=== PATIENT | male | born 1960 | race Caucasian/White ===

== ENCOUNTER 2024-08-04 19:51 | Emergency (ER) | payer OTHER, SELFPAY ==
[2024-08-04 19:59] VITALS: BP 127/101
[2024-08-04 20:28] LABS: % Basophils 0.7 % (0-2); % Eosinophils 1.6 % (0-6); % Immature Granulocytes 0.6 % (0-0.5); % Lymphocytes 25.5 % (20.5-51.1); % Monocytes 11.9 % (1.7-9.3); % Neutrophils 59.7 % (42.2-75.2); Absolute Basophils 0.1 10^3/uL (0-0.2); Absolute Eosinophils 0.2 10^3/uL (0-0.7); Absolute Immature Granulocytes 0.1 10^3/uL (0-0.05); Absolute Lymphocytes 2.4 10^3/uL (1.2-3.4); Absolute Monocytes 1.1 10^3/uL (0.1-0.6); Absolute Neutrophils 5.6 10^3/uL (1.4-6.5); Hematocrit 49.6 % (39.0-52.0); Hemoglobin 16.8 g/dL (13.0-18.0); Mean Corp Hgb Conc. 33.9 g/dL (33.0-37.0); Mean Corpuscular Hgb 29.8 pg (27.0-31.0); Mean Corpuscular Volume 87.9 fL (80.0-94.0); Nucleated Red Blood Cells % 0 % (-); Platelet Count 244 10^3/uL (130-400); Red Blood Cell Count 5.64 10^6/uL (4.70-6.10); Red Cell Dist. Width 17.2 % (11.5-14.5); White Blood Cell Count 9.5 10^3/uL (4.8-10.8)
[2024-08-04 20:36] VITALS: BMI 32.4
[2024-08-04 20:49] LABS: ALT (SGPT) 70 U/L (0-50); AST (SGOT) 87 U/L (17-59); Albumin 4.4 g/dl (3.5-5.0); Alkaline Phosphatase 43 U/L (38-126); Blood Urea Nitrogen 20 mg/dl (9-20); Calcium 10.4 mg/dl (8.4-10.2); Carbon Dioxide 27 mmol/L (22-30); Chloride 100 mmol/L (98-107); Estimated Creatinine Clearance 80 ml/min; Glucose 100 mg/dl (70-99); Potassium 4.5 mmol/L (3.5-5.1); Sodium 136 mmol/L (135-145); Total Bilirubin 0.4 mg/dl (0.2-1.3); Total Protein 7.3 g/dl (6.3-8.2); eGFR > 60.00
[2024-08-04 20:51] LABS: Troponin I 0.016 ng/ml
[2024-08-04 21:00] VITALS: BP 107/80
[2024-08-04 21:19] LABS: TSH Reflex To Free T4 3.36 uIU/ml (0.47-4.68)
[2024-08-04 22:00] VITALS: BP 117/66
[2024-08-04] MEDS: LOPRESSOR 5 MG IV (22:41)
--- NOTE | 2024-08-04 22:49 | ED.GENMED ---
History of Present Illness
General
Chief Complaint: Heart Rate Problem
Source: patient, records, physician and previous hospital records
Exam Limitations: none
Time Seen by Provider: 08/04/24 21:07
Nursing documentation reviewed up to this point in time: agreed with
History of Present Illness
History of Present Illness:
64-year-old male status post ablation for AF followed by Dr. Reddy in [facility] presents with a month of palpitations after being on a cruise, saw them, had a Holter monitor reportedly did not show any AF, recommended beta-chetan, has not been
started yet, nondrinker non-smoker, he feels irregular like when he had A-fib, no syncope, not currently on anticoagulation, has required cardioversion in the past prior to his ablation
Past History
Past History
ED Past Medical History: Arrthythmia (Paroxysmal atrial fibrillation.), Hypercholesterolemia and Other (Pulmonary embolus, paroxysmal atrial fib status post ablation, hyperlipidemia, spinal stenosis, recent COVID); Negative CAD, HTN or NIDDM
ED Past Surgical History: Orthopedic (Bilateral total knee replacements) and Other (Hernia repair)
Social History
Tobacco: Non-smoker
Alcohol: None
Drug: None
Personal:
Living: with family
Employment: Employed
Family History
Family History: Other (Pulmonary embolism)
Review of Systems
Review of Systems
All Other Systems: Not applicable
Constitutional: Reports fatigue; Denies fever
EENT: Reports no symptoms
Respiratory: Reports trouble breathing
Cardiac: Reports palpitations; Denies chest pain
ABD/GI: Reports no symptoms
Neurological: Reports dizzy and weakness
Phy Exam
Physical Exam
Physical Exam:
Physical Exam
General: no apparent distress, not acutely ill
Neck: Without jaundice
Heart: Regular with occasional irregular beat
Lungs: no acute respiratory distress. clear bilaterally
Abdomen nontender
Neuro: alert and oriented. no focal neurological deficits
Skin: no rash
Psychiatric: well kept. interactive and cooperative
Extremities: no edema.
Course
Orders/Labs/Results
Orders:
Orders
08/04/24 19:53
Electrocardiogram (*1) Urgent
Reason for Study: Tachycardia
EKG- Treatment ONCE
08/04/24 20:14
Complete Blood Count/With Diff Urgent
Comprehensive Metabolic Panel Urgent
TSH Reflex To Free T4 Urgent
Troponin I Urgent
08/04/24 22:07
Metoprolol [Lopressor] 5 mg IV NOW STA
Abnormal Lab Results
08/04/24
20:14
RDW 17.2 H %
(11.5-14.5)
Abs Immat Gran (auto) 0.1 H 10^3/uL
(0-0.05)
Absolute Monos (auto) 1.1 H 10^3/uL
(0.1-0.6)
Immature Gran % 0.6 H %
(0-0.5)
Monocytes % 11.9 H %
(1.7-9.3)
Glucose 100 H mg/dl
(70-99)
Calcium 10.4 H mg/dl
(8.4-10.2)
AST 87 H U/L
(17-59)
ALT 70 H U/L
(0-50)
08/04/24 20:14
08/04/24 20:14
Vital Signs
Initial and Last Documented VS:
Initial Vital Signs
Temp Pulse Resp BP Pulse Ox
98.2 F 120 18 127/101 99
08/04/24 19:59 08/04/24 19:59 08/04/24 19:59 08/04/24 19:59 08/04/24 19:59
Last Documented Vital Signs
Temp Pulse Resp BP Pulse Ox
98.2 F 89 13 107/80 99
08/04/24 19:59 08/04/24 21:45 08/04/24 21:15 08/04/24 21:00 08/04/24 19:59
MDM/Problems Addressed
Differential Diagnosis Includes:
PVCs AF atrial tach
MDM/Problems Addressed:
Palpitations
Chronic conditions affecting care: Arrhythmia
Acute Exacerbation and/or Progression of Chronic Illness: Arrhythmia
*EKG
Interpreted by ED Provider?: Yes
Interpretation: abnormal
Comparison EKG: no comparison EKG present
Heart Rate: 78
Rate: normal
Rhythm: sinus
Ischemia: other (PVCs)
*Cashier Or Checker Stock Clerk Interpretation
Rate: normal
Interpretation: normal
Heart Rate: 78
Rhythm: PVC's
*Critical Care Note
Total Time (30-74mins, 75-104mins- exclusive of procedures): Not Applicable
Data Reviewed
Review of Other/Old Records Reveals: Labs and Records
Source: patient, records and physician
Prescriptions/Medications Considered But Not Given:
Cardioversion beta-chetan
Update Note
Update Note:
Update reviewed with his outpatient middleware solutions architect looks like was PVCs occasional atrial tach, no AF, no indication for cardioversion there was talk of starting a beta-chetan which I will start here patient updated labs are noted
ED Attending Note
-
Portions of this chart may have been created with voice recognition software.� Occasional wrong word or��sound alike� substitutions may have occurred due to the inherent limitations of voice recognition software.
Discharge Plan
Departure
Patient Disposition: Home (Routine Discharge)
Date of Disposition: 08/04/24
Time of Disposition: 22:52
Patient with high blood pressure during this ER visit?: No
Discharge Problem:
Intermittent palpitations, Frequent PVCs
Instructions: Ventricular premature beats, Palpitations (DC)
Prescriptions:
New
metoprolol succinate 50 mg tablet extended release 24 hr
50 mg PO DAILY Qty: 30 2RF
No Action
cholecalciferol (vitamin D3) 1,000 UNITS tablet
10,000 units PO DAILY
mupirocin 1 APPLIC ointment
1 applic topical BID Qty: 1 0RF
Patient Comments:
last dose was 3/2 am
apixaban [Eliquis] 2.5 MG tablet
2.5 mg PO BID Qty: 90 0RF
Patient Comments:
last dose of Eliquis was end of May 2020
Rx Instructions:
BEGIN POST-SURGERY
oxycodone 5 MG tablet
5 mg PO Q6HPRN PRN (Reason: moderate-severe pain) Qty: 30 0RF
Rx Instructions:
1 tab moderate pain or 2 if pain severe
Dx total joint replacement
ongoing therapy
acetaminophen 500 MG tablet
1,000 mg PO Q6H Qty: 60 0RF
Rx Instructions:
Do not exceed >4000 mg daily.
docusate sodium 100 MG capsule
100 mg PO BID Qty: 30 0RF
sennosides [senna] 8.6 MG capsule
8.6 mg PO BID Qty: 30 0RF
baclofen 10 MG tablet
10 mg PO BID Qty: 14 0RF
gabapentin 100 MG capsule
100 mg PO BID Qty: 14 0RF
ondansetron 4 MG tablet,disintegrating
4 mg PO TIDPRN PRN (Reason: nausea/vomiting) Qty: 12 0RF
amoxicillin-pot clavulanate 1 TABLET tablet
1 tab PO Q12 Qty: 10 0RF
amoxicillin-pot clavulanate 1 TABLET tablet
1 tab PO Q12 Qty: 14 0RF
amoxicillin-pot clavulanate 875-125 mg tablet
1 tab PO BID Qty: 14 0RF
Referrals:
UNKNOWN - PT DOES,NOT KNOW [Family Provider] -
Vance Salazar MD [Active] -
Activity Restrictions/Additional Instructions:
Your caffeine, limit your alcohol, start metoprolol 50 mg a day follow-up with your middleware solutions architect
Interventions
Interventions:
*Risk Screen - Suicide Last Done: 08/04/24 19:59
*General Assessment Last Done: 08/04/24 19:59
*Neglect/Abuse Screening Last Done: 08/04/24 19:59
ED- Fall Risk Assessment Last Done: 08/04/24 20:36
*ED COVID-19 Vaccine History Last Done: 08/04/24 19:59
ED- Cardiac Assessment Last Done: 08/04/24 20:36
ED- Pulmonary Assessment Last Done: 08/04/24 20:36
Discharge Date and Time
Print Language: CHADIAN
[2024-08-04 23:00] VITALS: BP 96/75
== END 2024-08-04 23:25 | disposition home or self-care (01) ==
LOC: EMR 19:51
PROVIDERS: Emergency Medicine; EMERGENCY PHYSICIAN Emergency Medicine
DX: I49.3 Ventricular premature depolarization (principal); R00.2 Palpitations; E78.00 Pure hypercholesterolemia, unspecified; Z86.711 Personal history of pulmonary embolism; Z98.890 Other specified postprocedural states
CPT/HCPCS: 96374; 99284; 80053; 84443; 84484; 85025; 93005

== ENCOUNTER → 2024-08-10 13:14 | Outpatient (REF) | payer OTHER, SELFPAY ==
[2024-08-10 14:33] LABS: Erythrocyte Sed Rate 6 mm/hour (0-20)
[2024-08-10 14:40] LABS: Total CK 169 U/L (55-170)
[2024-08-10 14:44] LABS: C-Reactive Protein < 5.00 mg/L (0.0-10.00)
[2024-08-10 14:51] LABS: CKMB 3.1 ng/ml (0.0-3.4)
== END ==
LOC: RAD 13:14
PROVIDERS: ATTENDING PHYSICIAN Internal Medicine Cardiovascular Disease; FAMILY PHYSICIAN Family Medicine
DX: I26.99 Other pulmonary embolism without acute cor pulmonale (principal); I48.0 Paroxysmal atrial fibrillation; I48.91 Unspecified atrial fibrillation; R06.02 Shortness of breath
CPT/HCPCS: 36415; 71046; 82164; 82550; 82553; 85652; 86140

== ENCOUNTER → 2024-08-18 13:37 | Outpatient (REF) | payer OTHER, SELFPAY | LOC: HWRCS 13:37 | PROVIDERS: ATTENDING PHYSICIAN Internal Medicine Cardiovascular Disease; FAMILY PHYSICIAN Family Medicine | DX: R06.02 Shortness of breath (principal); I48.0 Paroxysmal atrial fibrillation | CPT/HCPCS: 93306 ==

== ENCOUNTER → 2024-08-20 11:23 | Outpatient (REF) | payer OTHER, SELFPAY | LOC: DHCBC/DCA 11:23 | PROVIDERS: ATTENDING PHYSICIAN Internal Medicine Cardiovascular Disease; FAMILY PHYSICIAN Family Medicine | DX: R06.02 Shortness of breath (principal); I48.0 Paroxysmal atrial fibrillation | CPT/HCPCS: 78452; 93017; A9500; J2785 ==

== ENCOUNTER 2024-09-04 08:01 | Day surgery (SDC) | payer OTHER, SELFPAY ==
[2024-09-04] VITALS (12 sets, daily range): BP systolic 101–163; BP diastolic 71–84; BMI 32.6
[2024-09-04 08:32] LABS: Hematocrit 54.5 % (39.0-52.0); Hemoglobin 18.8 g/dL (13.0-18.0); Mean Corp Hgb Conc. 34.5 g/dL (33.0-37.0); Mean Corpuscular Hgb 30.1 pg (27.0-31.0); Mean Corpuscular Volume 87.3 fL (80.0-94.0); Mean Platelet Volume 9.6 fL (7.4-10.4); Platelet Count 229 10^3/uL (130-400); Red Blood Cell Count 6.24 10^6/uL (4.70-6.10); Red Cell Dist. Width 17.9 % (11.5-14.5); White Blood Cell Count 7.6 10^3/uL (4.8-10.8)
[2024-09-04 08:50] LABS: ALT (SGPT) 50 U/L (0-50); AST (SGOT) 37 U/L (17-59); Albumin 4.9 g/dl (3.5-5.0); Alkaline Phosphatase 64 U/L (38-126); Blood Urea Nitrogen 19 mg/dl (9-20); Calcium 9.9 mg/dl (8.4-10.2); Carbon Dioxide 24 mmol/L (22-30); Chloride 102 mmol/L (98-107); Estimated Creatinine Clearance 78 ml/min; Glucose 106 mg/dl (70-99); Potassium 4.6 mmol/L (3.5-5.1); Sodium 137 mmol/L (135-145); Total Bilirubin 1.2 mg/dl (0.2-1.3); Total Protein 8.1 g/dl (6.3-8.2); eGFR > 60.00
[2024-09-04] MEDS: LOW STRENGTH ASPIRIN 324 MG PO (08:52)
--- NOTE | 2024-09-04 11:07 | ITS.CL.CATH ---
Addendum entered and electronically signed by Donaldo Batres MD 09/04/24 15:10:
Addendum:
Hemodynamics inadvertently left blank
HEMODYNAMICS : (mmHg)
AO (s/d) : 118/81, 97
LV (s/d) : 114/8
LVEDP : 14
Original Note:
Provider Relations Representative - Catheterization
Cardiac Catheterization
Procedure Report:
LEFT HEART CATHETERIZATION
Date of Procedure: September 04, 2024
Referring: Dr. Kuldip Reddy
PROCEDURES:
1. Left heart catheterization with coronary and single-plane left ventriculography
INDICATION: Palpitations and vague chest pressure. The ventricle is globally hypokinetic with an estimated ejection fraction of 40%. There is a moderate size fixed perfusion defect in the inferoapical, mid inferior, basal inferior segment
consistent with infarct versus soft tissue attenuation.
ACCESS: Right radial artery, 6 [place] sheath
HEMODYNAMICS : (mmHg)
AO (s/d) : [ ]
LV (s/d) : [ ]
LVEDP : [ ]
CORONARY FINDINGS
DOMINANCE: Right
LEFT MAIN: Normal
LEFT ANTERIOR DESCENDING: The LAD arises normally from the left main and runs in the anterior interventricular groove. The LAD wraps completely around the apex supplying a portion of the inferior wall and supplies a single sizable diagonal branch
that arises from the proximal third of the LAD. Only minor irregularities are noted.
CIRCUMFLEX: The circumflex is a large-caliber nondominant vessel. OM1 arises from the proximal circumflex and is a large-caliber bifurcating vessel. The circumflex continues in the AV groove supplying several small to medium caliber terminal
obtuse marginal branches.
RIGHT CORONARY ARTERY: The right coronary artery is a large caliber dominant vessel with only minor luminal irregularities.
VENTRICULOGRAPHY: Left ventriculography is performed in an DAVIS projection.
RADIATION SUMMARY: Fluoro Time (min): 4.7, Dose (mGy): 575, DAP (Gy.cm2) : 45.3
Closure Device: TR band
CONCLUSIONS
1. Nonobstructive coronary disease
2. Preserved LV systolic function
RECOMMENDATIONS
1. Medical therapy for any modifiable risks
2. Discuss PVC burden with Dr. Reddy
Copy to: Dr. Kuldip Reddy
--- NOTE | 2024-09-04 11:59 | PTCARENOTE ---
bedside report taken from Karla MOORE for break relief. Pt resting in bed. no complaints. Will continue to monitor.
--- NOTE | 2024-09-04 12:27 | PTCARENOTE ---
bedside update given to Karla MOORE.
== END 2024-09-04 14:30 | disposition home or self-care (01) ==
LOC: CATH 08:01
PROVIDERS: ATTENDING PHYSICIAN Internal Medicine Interventional Cardiology; FAMILY PHYSICIAN Family Medicine; OTHER PHYSICIAN Internal Medicine Cardiovascular Disease
DX: I25.10 Atherosclerotic heart disease of native coronary artery without angina pectoris (principal); R07.89 Other chest pain; R00.2 Palpitations; Z79.82 Long term (current) use of aspirin; Z79.899 Other long term (current) drug therapy; I10 Essential (primary) hypertension
CPT/HCPCS: 80053; 85027; 93458; C1894; Q9967

== ENCOUNTER → 2025-04-03 13:21 | Outpatient (REF) | payer OTHER, SELFPAY | LOC: PAVMRI 13:21 | PROVIDERS: ATTENDING PHYSICIAN Specialist; FAMILY PHYSICIAN Family Medicine | DX: M25.512 Pain in left shoulder (principal) | CPT/HCPCS: 73221 ==